=== PATIENT | male | born 1935 | race Caucasian/White ===

== ENCOUNTER 2019-02-15 13:41 | Inpatient (IN) | payer OTHER ==
[2019-02-15 14:02] VITALS: BMI 32.0
--- NOTE | 2019-02-15 14:12 | PDOC ---
History of Present Illness - General Chief Complaint: Weakness Stated Complaint: PAIN Time Seen by Provider: 02/15/19 14:11 History Source: Family Exam Limitations: Language Barrier - History of Present Illness Initial Comments: 02/15/19 14:11 PCP: Xenia Najera: Alison Cards: Aidee HPI: 83yo M with PMH BPH, HLD, [place], recent workup for confusion with ?dementia diagnosis this summer brought in by his daughter for 3 days of "heavy speech, flipping words" and "walking with a heavy shuffling gait. No trauma, no known hx of ICH, no history of GIB, no known clotting disorders. Patient was found to be confused over the summer, had a normal MRI at that time, tentative diagnosis of Alzheimer's dementia. Patient does not realize he is confusing words, family says he will repeat himself and say that he said the right thing even while continuing to misspeak: example given is stating "morning night" instead of danielle. Denies CP, SOB, urinary symptoms, no urinary incontinence, no fevers / chills, vomiting, sick contacts. All: NKDA Meds: Per chart PMH: As above PSH: Cholecystectomy Past History - Travel Traveled outside of the country in the last 30 days: No Close contact w/someone who was outside of country & ill: No - Past Medical History Allergies/Adverse Reactions: Allergies Allergy/AdvReac Type Severity Reaction Status Date / Time No Known Allergies Allergy Verified 02/15/19 14:02 Home Medications: Ambulatory Orders Aspirin [ASA] 81 mg PO DAILY 08/14/12 Dutasteride/Tamsulosin HCl [Zayra 0.5-0.4 mg Capsule] 1 each PO HS 08/14/12 Simvastatin [Zocor] 40 mg PO HS 08/14/12 Carvedilol 6.25 mg PO BID 02/15/19 Cardiac Disorders: Yes COPD: No Diabetes: No HTN: No Hypercholesterolemia: Yes Seizures: No - Psycho Social/Smoking Cessation Hx Smoking Status: No Smoking History: Never smoked Number of Cigarettes Smoked Daily: 0 Hx Alcohol Use: No Drug/Substance Use Hx: No Substance Use Type: None Review of Systems - Review of Systems Able to Perform ROS?: Yes (Speaks latvian, daughter) Is the patient limited Greenlandic proficient: No Constitutional: No: Chills, Fever HEENTM: No: Recent change in vision, Nose Congestion, Throat Pain Respiratory: No: Cough, Shortness of Breath Cardiac (ROS): No: Chest Pain, Lightheadedness, Palpitations, Syncope, Chest Tightness ABD/GI: No: Blood Streaked Bowels, Constipated, Diarrhea, Nausea, Vomiting, Tarry Stools : No: Burning, Dysuria, Incontinence Musculoskeletal: No: Back Pain, Muscle Pain, Muscle Weakness Integumentary: No: Change in Color, Pruritus, Rash Neurological: Yes: See HPI, Pre-Existing Deficit, Unsteady Gait (shuffling / "heavy" gait). No: Headache, Numbness, Tingling, Ataxia Psychiatric: No: Stressors, Emotional Problems Endocrine: No: Increased Thirst, Increased Urine Hematologic/Lymphatic: No: Anemia, Blood Clots, Easy Bleeding All Other Systems: Reviewed and Negative *Physical Exam - Vital Signs Last Vital Signs Temp Pulse Resp BP Pulse Ox 98.8 F 54 L 18 106/44 L 97 02/15/19 13:57 02/15/19 13:57 02/15/19 13:57 02/15/19 13:57 02/15/19 13:57 - Physical Exam 02/15/19 15:14 Vitals reviewed, notable for soft blood pressure Elderly man, speaking Turkish, no acute distress MMM, EOMI, trachea midline, NCAT RRR, nl s1s2, faint murmur appreciated CTABL, normal WOB, no wheezes / rales / rhonchi Soft, non-tender, non-distended 2+ radial and PT pulses WWP, no clubbing / cyanosis / edema CN 2-12 intact, normal sensation and strength throughout, normal finger-nose- finger, normal rapid alternating movements, gait narrow, shuffling, 5-point turn , speech confused per family (word finding / Broca's Aphasia) ED Treatment Course - LABORATORY CBC & Chemistry Diagram: 02/15/19 15:05 02/15/19 15:05 Medical Decision Making - Medical Decision Making 02/15/19 15:04 83yo M with PMH BPH, HLD, [place], recent workup for confusion with ?dementia diagnosis this summer brought in by his daughter for 3 days of "heavy speech, flipping words" and "walking with a heavy shuffling gait. DDX: CVA vs dementia ( vascular most likely given stepwise progression reported by family) vs NPH. - CBC, CMP, CP - UA, UCx - EKG, CXR, NCHCT - [place], 50cc IVF Dispo: Likely admit Stroke Unit 02/15/19 18:09 - Call placed to Dr. Rosas 02/15/19 18:24 - Dr. Rosas not on this weekend, will admit patient to stroke floor for further evaluation Dispo: Admit Stroke Floor 02/15/19 18:35 - Call placed to Dr. Gentile, neurology coverage - UA pending - CXR clear without infiltrate or effusion - EKG unchanged from prior - NCHCT unchanged from prior, dilated ventricles c/w 2012 CT and MRI this summer02/15/19 19:02 - Spoke with Dr. Simon, wants to admit the patient for concern over NPH, plan for LP tomorrow - [place] floor, concern for TIA/Stroke Dispo: Admit Stroke Floor Discharge - Discharge Information Problems reviewed: Yes Condition: Stable - Follow up/Referral Referrals: Iris Michaels MD [Primary Care Provider] - - Patient Discharge Instructions - Post Discharge Activity
[2019-02-15] MEDS ORDERED: SODIUM CHLORIDE 0.9% 500 ML INFUS.BAG IV ONE (14:46)
[2019-02-15 15:35] LABS: BASO % 0.8 % (0-2.0); HEMATOCRIT 35.8 % (35.4-49); HEMOGLOBIN 11.9 GM/dL (11.7-16.9); LYMPH % 39.7 % (8-40); MCH 30.4 pg (25.7-33.7); MCHC 33.2 g/dl (32.0-35.9); MEAN CELL VOLUME 91.4 fl (80-96); MEAN PLT VOLUME 9.4 fl (7.5-11.1); MONO % 8.3 % (3.8-10.2); NEUT % 48.2 % (42.8-82.8); PLATELET COUNT 129 K/MM3 (134-434); RBC 3.91 M/mm3 (4.00-5.60); RDW 14.2 % (11.9-15.9); WHITE BLOOD COUNT 6.9 K/mm3 (4.0-10.0)
[2019-02-15 15:54] LABS: INR 1.06 (0.83-1.09); PROTHROMBIN TIME (PATIENT) 12.5 SEC (9.7-13.0)
[2019-02-15 15:56] LABS: ACTIVATED PTT 32.7 SECONDS (25.2-36.5)
[2019-02-15 15:59] LABS: ALBUMIN 3.4 g/dl (3.4-5.0); ALK PHOS 52 U/L (45-117); ANION GAP 4 MMOL/L (8-16); BILIRUBIN,TOTAL 0.5 mg/dL (0.2-1); BLOOD UREA NITROGEN 22.6 mg/dL (7-18); CALCIUM 8.4 mg/dL (8.5-10.1); CHLORIDE 107 mmol/L (98-107); CO2 29 mmol/L (21-32); CREATININE 0.8 mg/dL (0.55-1.3); GLUCOSE,RANDOM 95 mg/dL (74-106); SGOT/AST 13 U/L (15-37); SGPT/ALT 17 U/L (13-61); SODIUM 140 mmol/L (136-145); TOT PROT 6.4 g/dl (6.4-8.2)
--- NOTE | 2019-02-15 17:17 | PDOC ---
Documentation entered by Bhargavi Wang SCRIBE, acting as scribe for Kayden Jose MD. Kayden Jose MD: This documentation has been prepared by the Kathleen martinez Xhesika, SCRIBE, under my direction and personally reviewed by me in its entirety. I confirm that the documentation accurately reflects all work, treatment, procedures, and medical decision making performed by me. Attending Attestation - Resident Resident Name: Luiz Martinez - ED Attending Attestation I have performed the following: I have examined & evaluated the patient, The case was reviewed & discussed with the resident, I agree w/resident's findings & plan, Exceptions are as noted - HPI HPI: 02/15/19 15:00 The patient is an 83 year old male with a significant PMH of HLD, hard of hearing, enlarged prostate, and ?questionable dementia who presents to the emergency department for recent history of difficulty ambulating and difficulty word finding. family at bedside states patient has been having diffuclty remembering words and sometimes stops speakling in the middle of a thought and is unaware that he is doing that, which is unlike him. Also reports patient has been walking with shuffling gait since 02/12. Pt currently denies any symptoms. The patient denies chest pain, shortness of breath, headache and dizziness. Denies fever, chills, cough, nausea, vomiting, diarrhea and constipation. Denies dysuria, frequency, urgency and hematuria. Allergies: NKDA - Physicial Exam PE: 02/15/19 15:02 GENERAL: The patient is awake, alert, Nontoxic - in no acute distress. HEAD: Normocephalic, atraumatic. EYES: extraocular movements intact, sclera anicteric, conjunctiva clear. ENT: Normal voice, Moist mucous membranes. NECK: Normal range of motion, supple without lymphadenopathy, JVD, or masses. LUNGS: Breath sounds equal, clear to auscultation bilaterally. No wheezes, no crackles, no rales. HEART: Regular rate and rhythm, normal S1 and S2 without murmur, rub or gallop. ABDOMEN: Soft, nontender, No guarding, no rebound. No masses. EXTREMITIES: Normal range of motion, no edema. NEUROLOGICAL: No facial asymmetry, Normal speech, sensation intact and symmetrric on upper/klower extermities PSYCH: Normal mood, normal affect. SKIN: Warm, Dry, normal turgor, no rashes or lesions noted. - Medical Decision Making 02/15/19 14:42 83y M hx of HL, presents with word finding difficulty and difficulty ambulating that has beeng etting worse - unclear acuteness - daughter noticed it on 02/12 but another family notes it hs been getting worse for the past month. pt himself wo any complaints. nonfocal exam ddx includes metabolic derangement, occult infection, cva/tia, progression of dementia will reasesss and dw neuro 02/15/19 17:[address] reviewed noted for mild ventricular diltation will dw dr. de la garza regarding dispo and need for obs/admit for further workup
[2019-02-15 18:54] LABS: PH,URINE 6.5 (5.0-8.0); URINE APPEARANCE Clear; URINE BILIRUBIN Negative (NEGATIVE); URINE COLOR Yellow; URINE GLUCOSE (UA) Negative (NEGATIVE); URINE KETONE Negative (NEGATIVE); URINE LEUK ESTERASE Negative (NEGATIVE); URINE NITRITE Negative (NEGATIVE); URINE PROTEIN Negative (NEGATIVE); URINE UROBILINOGEN 0.2 mg/dL (0.2-1.0)
[2019-02-15 20:47] VITALS: BP 111/50; PULSE 65; TEMP 98.2
--- NOTE | 2019-02-15 21:47 | HP ---
Admitting History and Physical - Primary Care Physician PCP: Dr. Michaels - Admission Chief Complaint: weakness History of Present Illness: 83 year old male with PMHx of BPH, HLD, [place], recent workup for confusion with ? dementia diagnosis this summer arrived to ED with "heavy speech, flipping words " and "walking with a heavy shuffling gait for three weeks as per SON. Family denies fall/trauma. Patient was found to be confused over the summer, had a normal MRI at that time, tentative diagnosis of Alzheimer's dementia. Patient does not realize he is confusing words, family says he will repeat himself and say that he said the right thing even while continuing to misspeak: example given is stating "morning night" instead of danielle. Denies CP, SOB, urinary symptoms, no urinary incontinence, no fevers / chills, vomiting, sick contacts. 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 Cardiovascular: Yes: HTN, Hyperlipdemia Renal/: Yes: BPH - Past Surgical History Past Surgical History: Yes: Cholecystectomy - Smoking History Smoking history: Never smoked Aproximately how many cigarettes per day: 0 - Alcohol/Substance Use Hx Alcohol Use: No History of Substance Use: reports: None - Social History Usual Living Arrangement: Yes: With Child ADL: Family Assistance History of Recent Travel: No Home Medications - Allergies Allergies/Adverse Reactions: Allergies Allergy/AdvReac Type Severity Reaction Status Date / Time No Known Allergies Allergy Verified 02/15/19 14:02 - Home Medications Home Medications: Ambulatory Orders Aspirin [ASA] 81 mg PO DAILY 08/14/12 Dutasteride/Tamsulosin HCl [Zayra 0.5-0.4 mg Capsule] 1 each PO HS 08/14/12 Simvastatin [Zocor] 40 mg PO HS 08/14/12 Carvedilol 6.25 mg PO BID 02/15/19 Family Medical History Family Hx Congestive Heart Failure: Father Review of Systems - Review of Systems Constitutional: reports: No Symptoms Eyes: reports: No Symptoms HENT: reports: No Symptoms Neck: reports: No Symptoms Cardiovascular: reports: No Symptoms Respiratory: reports: No Symptoms Gastrointestinal: reports: No Symptoms Genitourinary: reports: No Symptoms Breasts: reports: No Symptoms Reported Musculoskeletal: reports: No Symptoms Integumentary: reports: No Symptoms Neurological: reports: Other (pre-exisiting symptoms ( unsteady gait, shuffing, forgetting words)) Endocrine: reports: No Symptoms Hematology/Lymphatic: reports: No Symptoms Psychiatric: reports: No Symptoms Physical Examination Vital Signs: Vital Signs Temperature 98.2 F 02/15/19 20:42 Pulse Rate 65 02/15/19 20:42 Respiratory Rate 20 02/15/19 20:42 Blood Pressure 111/50 L 02/15/19 20:42 O2 Sat by Pulse Oximetry (%) 99 02/15/19 20:42 Constitutional: Yes: No Distress Eyes: Yes: Conjunctiva Clear, EOM Intact HENT: Yes: Atraumatic, Normocephalic Neck: Yes: Supple, Trachea Midline Cardiovascular: Yes: Regular Rate and Rhythm Respiratory: Yes: Regular, CTA Bilaterally Gastrointestinal: Yes: Normal Bowel Sounds, Soft Musculoskeletal: Yes: WNL Extremities: Yes: WNL Edema: No Peripheral Pulses WNL: Yes Integumentary: Yes: WNL Neurological: Yes: Alert (alert, oriented to self only) Labs: CBC, BMP 02/15/19 15:05 02/15/19 15:05 Imaging - Results Chest X-ray: Report Reviewed (CXR: no acute infiltrate) Cat Scan: Report Reviewed (Head CT: no acute intracranial pathology, moderate ventricular dilation central atrophy vs NPH) Problem List - Problems (1) NPH (normal pressure hydrocephalus) Code(s): G91.2 - (IDIOPATHIC) NORMAL PRESSURE HYDROCEPHALUS (2) HTN (hypertension) Code(s): I10 - ESSENTIAL (PRIMARY) HYPERTENSION (3) HLD (hyperlipidemia) Code(s): E78.5 - HYPERLIPIDEMIA, UNSPECIFIED (4) BPH (benign prostatic hyperplasia) Code(s): N40.0 - BENIGN PROSTATIC HYPERPLASIA WITHOUT LOWER URINRY TRACT SYMP Assessment/Plan 83 year old male with PMHx of BPH, HLD, [place], recent workup for confusion with ? dementia diagnosis this summer arrived to ED with "heavy speech, flipping words " and "walking with a heavy shuffling gait for three weeks as per SON. # NPH vs TIA/ stroke # Recent dx of Alzheimer's dementia - UA negative - CXR clear without infiltrate or effusion - EKG unchanged from prior Head CT: no acute intracranial pathology, moderate ventricular dilation central atrophy vs NPH admit to tele - In Ed given 500ml IVF x1 -ASA 81 mg po daily -follow up neurology in Am -safety/fall precaution -follow up cbc, bmp in AM - NPO, possible plan for LP tomorrow # HTN/ HLD -Simvastatin 40 mg PO HS -Carvedilol 6.25 mg PO BID # BPH -Dutasteride/Tamsulosin HCl 1 each PO HS Diet: NPO, resume medication and diet after procedure in AM VTE: heparin BID dispo: telemetry inpatient Visit type - Emergency Visit Emergency Visit: Yes ED Registration Date: 02/15/19 Care time: The patient presented to the Emergency Department on the above date and was hospitalized for further evaluation of their emergent condition. - New Patient This patient is new to me today: Yes Date on this admission: 02/15/19 - Critical Care Critical Care patient: No
[2019-02-15] MEDS ORDERED: ACETAMINOPHEN 325 MG TABLET (FP) PO PRN (22:16)
[2019-02-16] MEDS ORDERED: HEPARIN NA (PORCINE) 5,000 UNITS/ML 1ML VIAL SQ SCH (10:00)
--- NOTE | 2019-02-16 11:23 | CON.NEURO ---
Consult Consult Specialty:: [facility] for Dr Rosas Referred by:: ER - History of Present Illness History of Present Illness: his is a very pleasant 83-year-old right-handed Ukrainian speaking man with multiple medical problem presents to the hospital by the family with a chief complaint of about 72-96 hours of increasing difficulty with speech mild confusion and difficulty with walking. Apparently the patient is under the care of neurology and patient had neurological testing done before including an MRI in September 2018 when he came in yesterday patient wasstepwise CAT scan of the head revealed no evidence of acute SHOEMAKING CUTTER pathology I compared the MRI from September 2018 to the CAT scan from yesterday. Patient was kept in the emergency room since admission to the emergency room no chest pain or palpitation no double vision or blurry vision. 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 Cardio/Vascular: Yes: HTN, Hyperlipdemia Renal/: Yes: BPH - Past Surgical History Past Surgical History: Yes: Cholecystectomy - Alcohol/Substance Use Hx Alcohol Use: No History of Substance Use: reports: None - Smoking History Smoking history: Never smoked Aproximately how many cigarettes per day: 0 - Social History ADL: Family Assistance History of Recent Travel: No Home Medications - Allergies Allergies/Adverse Reactions: Allergies Allergy/AdvReac Type Severity Reaction Status Date / Time No Known Allergies Allergy Verified 02/15/19 14:02 - Home Medications Home Medications: Ambulatory Orders Aspirin [ASA] 81 mg PO DAILY 08/14/12 Dutasteride/Tamsulosin HCl [Zayra 0.5-0.4 mg Capsule] 1 each PO HS 08/14/12 Simvastatin [Zocor] 40 mg PO HS 08/14/12 Carvedilol 6.25 mg PO BID 02/15/19 Family Medical History Family History: Unremarkable Review of Systems - Review of Systems Constitutional: reports: No Symptoms Eyes: reports: No Symptoms Neurological: reports: Change in LOC, Headache, Incoordination, Numbness Physical Exam-Neuro Vital Signs: Vital Signs Temperature 98.2 F 02/15/19 20:42 Pulse Rate 65 02/15/19 20:42 Respiratory Rate 20 02/15/19 20:42 Blood Pressure 111/50 L 02/15/19 20:42 O2 Sat by Pulse Oximetry (%) 99 02/15/19 20:42 Constitutional: Yes: Well Nourished Neck: Yes: WNL Cardiovascular: Yes: WNL Labs: CBC, BMP 02/15/19 15:05 02/15/19 15:05 INR, PTT INR 1.06 (0.83-1.09) 02/15/19 15:05 - Neuro Exam Level Of Consciousness: Yes: Oriented to Person, Oriented to Place Eyes: Yes: PERRLA Speech: WNL Cranial Nerves II-XII Intact: Yes Gag: Present DTR's: 1+ Left Bicep, 1+ Right Bicep, 1+ Left Tricep, 1+ Right Tricep Response to light touch: Abnormal Response to pain prick: Abnormal Response to temperature: Abnormal Motor Strength: 3/5: Left Arm, Right Arm, Left Leg, Right Leg Gait: Ataxia Imaging - Results Cat Scan: Image Reviewed MRI: Image Reviewed Problem List - Problems (1) NPH (normal pressure hydrocephalus) Assessment/Plan: there is no evidence of acute SHOEMAKING CUTTER pathology on today's exam Patient with symptoms that has been progressive over the pastfew months. constellation of symptoms of memory problem and gait difficulty with no urinary incontinence recently Of increasing possibility of hydrocephalus 1. Neuro checks every 1 hour. 2. Physical therapy. 3. Blood work for dementia. 4. Patient to be seen by Dr. Alison nowak Monday Thank you very much for allowing me to be part of this patient's neurological care. Ayleen Simon M.D. Code(s): G91.2 - (IDIOPATHIC) NORMAL PRESSURE HYDROCEPHALUS
--- NOTE | 2019-02-16 13:36 | EKG ---
Test Reason : Blood Pressure : / mmHG Vent. Rate : 052 BPM Atrial Rate : 052 BPM P-R Int : 188 ms QRS Dur : 092 ms QT Int : 444 ms P-R-T Axes : 019 -27 -04 degrees QTc Int : 412 ms SINUS BRADYCARDIA OTHERWISE NORMAL ECG WHEN COMPARED WITH ECG OF 14-AUG-2012 14:08, NO SIGNIFICANT CHANGE WAS FOUND Confirmed by MD VILLAFANA PENG ([id number]) on 02/16/2019 1:36:01 PM Referred By: Confirmed By:NANCY VILLAFANA MD
== END 2019-02-15 23:09 | disposition left against medical advice (07) | DRG 57 ==
LOC: JER 13:41 → JERBED 18:23
PROVIDERS: ADMIT Family Medicine; ATTEND Family Medicine
DX: G91.2 (Idiopathic) normal pressure hydrocephalus (principal); E78.5 Hyperlipidemia, unspecified; N40.0 Benign prostatic hyperplasia without lower urinary tract symptoms; H91.93 Unspecified hearing loss, bilateral; F03.90 Unspecified dementia, unspecified severity, without behavioral disturbance, psychotic disturbance, mood disturbance, and anxiety; G30.9 Alzheimer's disease, unspecified; F02.80 Dementia in other diseases classified elsewhere, unspecified severity, without behavioral disturbance, psychotic disturbance, mood disturbance, and anxiety; I10 Essential (primary) hypertension
CPT/HCPCS: 36415; 70450-TC; 71045-TC-FY; 80053; 81003; 82550; 83735; 84484; 85025; 85610; 85730; 87086; 93005; 93010; 99284-25

== ENCOUNTER 2020-02-15 14:22 | Inpatient (IN) | payer OTHER ==
[2020-02-15] MEDS ORDERED: LACTATED RINGERS SOLUTION 1000 ML INFUS.BAG IV ONE ×4 (15:03→19:52)
[2020-02-15] MEDS ORDERED: VANCOMYCIN 1,000 MG in DEXTROSE 5%-WATER - 250 ML IVPB ONE (15:03)
[2020-02-15] MEDS ORDERED: PIPERACILLIN/TAZOB 4.5 GM 4.5 GM in DEXTROSE 5%-WATER 100 ML IVPB ONE (15:04)
[2020-02-15] MEDS ORDERED: ACETAMINOPHEN 1000 MG/100 ML BAG IVPB ONE (15:06)
[2020-02-15] MEDS ORDERED: SODIUM CHLORIDE 0.9% 500 ML INFUS.BAG IV ONE ×3 (15:06→19:56)
[2020-02-15] MEDS ORDERED: PIPERACILLIN/TAZOB 4.5 GM 4.5 GM/100 ML BAG IVPB ONE (15:18)
[2020-02-15 15:32] LABS: VENOUS BASE EXCESS 1.6 mmol/L (-2-2); VENOUS O2 SATURATION 52.7 % (70-80); VENOUS PCO2 40.2 mmHg (38-52); VENOUS PH 7.429 (7.310-7.410)
[2020-02-15 15:46] VITALS: BMI 24.3
[2020-02-15 15:48] LABS: ARTERIAL BLD GAS O2 SATURATION 98.3 mmHg (95-98); ARTERIAL BLOOD GAS PO2 109.9 mmHg (80-100); ARTERIAL BLOOD GAS pH 7.472 (7.350-7.450)
[2020-02-15 15:52] LABS: CHLORIDE 111 mmol/L (98-107); SODIUM 145 mmol/L (136-145)
[2020-02-15 15:53] LABS: ALLENS TEST POSITIVE; VENT MODE AC; VENT RATE 16
[2020-02-15 15:54] LABS: ALBUMIN 2.1 g/dl (3.4-5.0); CALCIUM 8.3 mg/dL (8.5-10.1); CO2 27 mmol/L (21-32)
[2020-02-15 15:55] LABS: GLUCOSE,RANDOM 198 mg/dL (74-106)
[2020-02-15] MEDS ORDERED: DEXAMETHASONE SOD PHOSPHATE 4 MG/1 ML VIAL IVPUSH ONE (15:55)
[2020-02-15 15:57] LABS: BILIRUBIN,DIRECT 0.2 mg/dL (0.0-0.2); SGPT/ALT 54 U/L (13-61)
[2020-02-15 15:58] LABS: CREATININE 5.3 mg/dL (0.55-1.3); SGOT/AST 98 U/L (15-37)
[2020-02-15 15:59] LABS: BILIRUBIN,TOTAL 0.4 mg/dL (0.2-1); TOT PROT 6.3 g/dl (6.4-8.2)
[2020-02-15 16:00] LABS: ALK PHOS 70 U/L (45-117)
[2020-02-15 16:01] LABS: BASO % 0.2 % (0-2.0); EOS % 0.1 % (0-4.5); HEMATOCRIT 38.9 % (35.4-49); HEMOGLOBIN 12.7 GM/dL (11.7-16.9); LDH 416 U/L (87-246); MCH 29.5 pg (25.7-33.7); MCHC 32.6 g/dl (32.0-35.9); MEAN CELL VOLUME 90.4 fl (80-96); MEAN PLT VOLUME 11.2 fl (7.5-11.1); NEUT % 84.7 % (42.8-82.8); PLATELET COUNT 123 K/MM3 (134-434); RBC 4.31 M/mm3 (4.00-5.60); RDW 16.9 % (11.9-15.9); WHITE BLOOD COUNT 15.4 K/mm3 (4.0-10.0)
[2020-02-15] MEDS ORDERED: DEXAMETHASONE SOD PHOSPHATE 10 MG/1 ML VIAL ONE (16:29)
[2020-02-15] MEDS ORDERED: VANCOMYCIN 1 GRAM (PRE-DOCKED) 1,000 MG/250 ML BAG IVPB ONE (16:41)
[2020-02-15 16:58] LABS: ANION GAP 7 MMOL/L (8-16)
[2020-02-15 17:02] LABS: BLOOD UREA NITROGEN 113.9 mg/dL (7-18)
[2020-02-15] MEDS ORDERED: INSULIN REGULAR HUMAN 100 UNITS/ML *VIAL IVPUSH ONE (17:02)
[2020-02-15] MEDS ORDERED: CALCIUM GLUCONATE 10% - 1,000 MG/10 ML VIAL IVPUSH ONE (17:03)
[2020-02-15] MEDS ORDERED: DEXTROSE 50%-WATER - 25 GM/50 ML VIAL IVPUSH ONE (17:03)
[2020-02-15] MEDS ORDERED: CALCIUM GLUCONATE 10% - 1,000 MG/10 ML VIAL ONE (17:10)
[2020-02-15] MEDS ORDERED: DEXTROSE 50%-WATER 25 GM/50 ML DISP.SYRIN ONE (17:10)
[2020-02-15] MEDS: NOREPINEPHRINE BITARTRATE 8,000 MCG/500 ML BAG IVPB SCH (17:55)
[2020-02-15 19:06] LABS: URINE APPEARANCE CLEAR; URINE BILIRUBIN 1+ (NEGATIVE); URINE COLOR DK YELLOW; URINE GLUCOSE (UA) NEGATIVE (NEGATIVE); URINE KETONE NEGATIVE (NEGATIVE); URINE LEUK ESTERASE NEGATIVE (NEGATIVE); URINE NITRITE NEGATIVE (NEGATIVE); URINE PROTEIN TRACE (NEGATIVE); URINE UROBILINOGEN 0.2 mg/dL (0.2-1.0)
[2020-02-15] MEDS: VASOPRESSIN 40 UNITS in SODIUM CHLORIDE 98 ML IVPB SCH (19:30)
[2020-02-16] MEDS ORDERED: HYDROmorphone HCl 2 MG/ML VIAL ONE ×2 (08:43→21:49)
[2020-02-16] MEDS ORDERED: HYDROmorphone HCl 2 MG/ML VIAL IVPUSH ONE (09:24)
[2020-02-16 09:36] LABS: HEMATOCRIT 33.4 % (35.4-49); HEMOGLOBIN 10.9 GM/dL (11.7-16.9); MCH 29.8 pg (25.7-33.7); MCHC 32.5 g/dl (32.0-35.9); MEAN CELL VOLUME 91.7 fl (80-96); MEAN PLT VOLUME 11.3 fl (7.5-11.1); PLATELET COUNT 116 K/MM3 (134-434); RBC 3.65 M/mm3 (4.00-5.60); RDW 17.1 % (11.9-15.9)
[2020-02-16] MEDS: NOREPINEPHRINE BITARTRATE 8,000 MCG/500 ML BAG IVPB SCH (09:42)
[2020-02-16 09:47] LABS: INR 1.08 (0.83-1.09); PROTHROMBIN TIME (PATIENT) 13.3 SEC (9.7-13.0)
[2020-02-16 09:58] LABS: ALBUMIN 1.6 g/dl (3.4-5.0); CALCIUM 7.5 mg/dL (8.5-10.1)
[2020-02-16 10:03] LABS: BILIRUBIN,TOTAL 0.4 mg/dL (0.2-1); CREATININE 4.4 mg/dL (0.55-1.3); TOT PROT 5.5 g/dl (6.4-8.2)
[2020-02-16 10:10] LABS: BLOOD UREA NITROGEN 108.3 mg/dL (7-18)
[2020-02-16] MEDS ORDERED: PT OWN MED DRAWER 7, Y5N ONE (13:21)
[2020-02-16] MEDS: VASOPRESSIN 40 UNITS in SODIUM CHLORIDE 98 ML IVPB SCH (14:00)
[2020-02-16] MEDS ORDERED: LACTATED RINGERS SOLUTION 1000 ML INFUS.BAG IV ONE (14:14)
[2020-02-16] MEDS ORDERED: PIPERACILLIN/TAZOBACTAM 2.25 GM VIAL IVPB ONE ×2 (16:04→22:46)
[2020-02-16] MEDS ORDERED: DEXTROSE 5%-WATER - 50 ML IVPB ONE ×2 (16:05→22:46)
[2020-02-16] MEDS: PIPERACILLIN/TAZOB 2.25 GM 2.25 GM in DEXTROSE 5%-WATER - 50 ML IVPB SCH ×2 (16:18→21:50)
[2020-02-16] MEDS: LACTATED RINGERS SOLUTION 1,000 ML/1,000 ML INFUS.BAG IV SCH (17:22)
[2020-02-16] MEDS ORDERED: HYDROmorphone HCL CARPU-JECT 2 MG/1 ML DISP.SYRIN IVPUSH PRN (21:46)
[2020-02-16] MEDS ORDERED: MIDAZOLAM HCL 2 MG/2 ML SINGLE DOSE VIAL IVPUSH ONE (21:47)
[2020-02-17] MEDS ORDERED: PIPERACILLIN/TAZOBACTAM 2.25 GM VIAL IVPB ONE ×2 (03:16→08:15)
[2020-02-17] MEDS ORDERED: DEXTROSE 5%-WATER - 50 ML IVPB ONE ×2 (03:16→08:15)
[2020-02-17] MEDS: PIPERACILLIN/TAZOB 2.25 GM 2.25 GM in DEXTROSE 5%-WATER - 50 ML IVPB SCH ×2 (03:17→08:19)
[2020-02-17] MEDS: NOREPINEPHRINE BITARTRATE 8,000 MCG/500 ML BAG IVPB SCH (03:40)
[2020-02-17 07:28] LABS: HEMATOCRIT 31.3 % (35.4-49); HEMOGLOBIN 10.2 GM/dL (11.7-16.9); MCH 29.4 pg (25.7-33.7); MCHC 32.4 g/dl (32.0-35.9); MEAN CELL VOLUME 90.5 fl (80-96); MEAN PLT VOLUME 11.2 fl (7.5-11.1); RBC 3.46 M/mm3 (4.00-5.60); RDW 16.9 % (11.9-15.9); WHITE BLOOD COUNT 13.4 K/mm3 (4.0-10.0)
[2020-02-17 07:42] LABS: ALBUMIN 1.5 g/dl (3.4-5.0); CALCIUM 7.6 mg/dL (8.5-10.1)
[2020-02-17 07:45] LABS: CREATININE 3.7 mg/dL (0.55-1.3)
[2020-02-17 07:47] LABS: BILIRUBIN,TOTAL 0.6 mg/dL (0.2-1); TOT PROT 5.2 g/dl (6.4-8.2)
[2020-02-17 08:15] LABS: BLOOD UREA NITROGEN 109.7 mg/dL (7-18)
[2020-02-17] MEDS: VANCOMYCIN 1 GRAM (PRE-DOCKED) 1,000 MG/250 ML BAG IVPB SCH (08:19)
[2020-02-17] MEDS: DEXAMETHASONE SOD PHOSPHATE 4 MG/1 ML VIAL IVPUSH SCH ×2 (09:39→22:10)
[2020-02-17 11:23] LABS: PLATELET COUNT 123 K/MM3 (134-434)
[2020-02-17] MEDS ORDERED: LACTATED RINGERS SOLUTION 1000 ML INFUS.BAG IV ONE (14:40)
[2020-02-17] MEDS ORDERED: MORPHINE SULFATE/0.9% NACL/PF 100 MG/100 ML BAG IVPB SCH (15:30)
[2020-02-17] MEDS: LORazepam 2 MG/ML SDV VIAL IVPUSH PRN (17:10)
[2020-02-17] MEDS: LACTATED RINGERS SOLUTION 1,000 ML/1,000 ML INFUS.BAG IV SCH (22:09)
[2020-02-18] MEDS: LORazepam 2 MG/ML SDV VIAL IVPUSH PRN ×2 (01:23→08:06)
[2020-02-18] MEDS: VANCOMYCIN 1 GRAM (PRE-DOCKED) 1,000 MG/250 ML BAG IVPB SCH (08:06)
[2020-02-18] MEDS: DEXAMETHASONE SOD PHOSPHATE 4 MG/1 ML VIAL IVPUSH SCH (09:53)
[2020-02-18] MEDS ORDERED: LORazepam 2 MG/ML SDV VIAL IVPUSH PRN (17:32)
[2020-02-18] MEDS ORDERED: MORPHINE SULFATE/0.9% NACL/PF 100 MG/100 ML BAG IVPB SCH (17:45)
[2020-02-18] MEDS ORDERED: DEXAMETHASONE SOD PHOSPHATE 4 MG/1 ML VIAL IVPUSH SCH (22:00)
[2020-02-18] MEDS: VASOPRESSIN 40 UNITS in SODIUM CHLORIDE 98 ML IVPB SCH ×2 (22:09→22:12)
[2020-02-18] MEDS: NOREPINEPHRINE BITARTRATE 8,000 MCG/500 ML BAG IVPB SCH ×2 (22:09→22:12)
[2020-02-18] MEDS: PIPERACILLIN/TAZOB 2.25 GM 2.25 GM in DEXTROSE 5%-WATER - 50 ML IVPB SCH ×3 (22:10→22:12)
[2020-02-18] MEDS: VANCOMYCIN 1,000 MG in DEXTROSE 5%-WATER - 250 ML IVPB SCH ×2 (22:12→22:13)
[2020-02-19 14:32] VITALS: BP 81/38; PULSE 122; TEMP 98
== END 2020-02-19 18:43 | disposition expired | DRG 871 ==
LOC: JER 14:22 → JERBED 15:23 → JICU 02-16 07:08 → J4S 02-18 19:42
PROVIDERS: ADMIT Internal Medicine; ATTEND Internal Medicine
PROC: 5A1945Z Respiratory Ventilation, 24-96 Consecutive Hours (ICD-10-PCS; principal; 2020-02-15)
DX: A41.89 Other specified sepsis (principal); U07.1 COVID-19; J96.21 Acute and chronic respiratory failure with hypoxia; R65.21 Severe sepsis with septic shock; J12.89 Other viral pneumonia; N17.9 Acute kidney failure, unspecified; R64 Cachexia; E87.2 Acidosis; I95.9 Hypotension, unspecified; R62.7 Adult failure to thrive; E87.5 Hyperkalemia; I10 Essential (primary) hypertension; E78.5 Hyperlipidemia, unspecified; N40.0 Benign prostatic hyperplasia without lower urinary tract symptoms; Z68.24 Body mass index [BMI] 24.0-24.9, adult; Z93.0 Tracheostomy status; Z93.1 Gastrostomy status; Z51.5 Encounter for palliative care; K21.9 Gastro-esophageal reflux disease without esophagitis
CPT/HCPCS: 36415; 36600; 71045-TC-FY; 80053; 81003; 82248; 82550; 82553; 82728; 82803; 83605; 83615; 84484; 85025; 85027; 85379; 85610; 85730; 86140; 87040; 87086; 93005; 93010; 94002; 99291; 99292; C9803; J0131; U0003